=== PATIENT | female | born 1990 | race Caucasian/White ===

== ENCOUNTER 2017-06-20 11:51 | Emergency (ER) | payer OTHER ==
[~2017-06-20] VITALS: Ht 170.2 cm; Wt 71.2 kg
--- NOTE | 2017-06-20 12:02 | NUR ---
PATIENT TO ED DT LOWER ABDOMINAL CRAMP LIKE PAIN X 1 WEEK,. PATIENT IS 27 WEEEKS . DENIES BLOOD DISCHARGE, ADMITTED HAVING OCCASIONAL PAIN IN URINATION. PATIENT IS AFEBRILE. IN NO APPARENT DISTRESS. RESPIRATION EVEN AND UNALBORED. VSS
[2017-06-20 12:20] LABS: APPEARANCE,URINE Clear (CLEAR); BILIRUBIN,URINE Negative (NEGATIVE); BLOOD, URINE Negative Ery/uL (NEGATIVE); COLOR,URINE Yellow (YELLOW); KETONES,URINE 15 (NEGATIVE); LEUKOCYTE ESTERASE ,URINE Negative (NEGATIVE); NITRITE, URINE Negative (NEGATIVE); PROTEIN,URINE Negative (NEGATIVE); UGLUCOSE Negative (NEGATIVE); UROBILINOGEN,URINE 0.2 EU/dL (0.2)
[2017-06-20 12:29] LABS: BACTERIA,URINE Few /HPF (None Seen); MUCUS,URINE Few /LPF (None Seen); RBC,URINE 0-3 /HPF (0-2); SQUAMOUS EPITHELIAL CELL,UR Few /HPF (None Seen)
[2017-06-20 13:03] VITALS: BP 120/70
--- NOTE | 2017-06-20 13:04 | NUR ---
Patient discharged to home in stable condition. Written and verbal after care instructions given. Patient verbalizes understanding of instruction.
== END 2017-06-20 13:08 | disposition home or self-care (01) ==
LOC: ER 11:55
DX: O26.892 Other specified pregnancy related conditions, second trimester (principal); R10.30 Lower abdominal pain, unspecified; Z3A.26 26 weeks gestation of pregnancy
CPT/HCPCS: 76805; 81001; 99285; A4606; Z7610; 81000-TC

== ENCOUNTER 2019-03-17 18:17 | Emergency (ER) | payer OTHER ==
[~2019-03-17] VITALS: Ht 167.6 cm; Wt 54.9 kg
--- NOTE | 2019-03-17 18:30 | NUR ---
"Lower abdominal pain/diarrhea since yesterday" Patient a/ox4, breathing even and unlabored, no sob noted, attached to the monitor, changed into gown, patient gave urine sample and sent to lab. No distress noted, awaiting for md vigil.
[2019-03-17 18:38] LABS: APPEARANCE,URINE Clear (CLEAR); BILIRUBIN,URINE Negative (NEGATIVE); BLOOD, URINE Negative Ery/uL (NEGATIVE); COLOR,URINE Yellow (YELLOW); KETONES,URINE Negative (NEGATIVE); LEUKOCYTE ESTERASE ,URINE Negative (NEGATIVE); NITRITE, URINE Negative (NEGATIVE); PROTEIN,URINE Negative (NEGATIVE); UGLUCOSE Negative (NEGATIVE)
[2019-03-17 18:50] LABS: BASOPHILS % (AUTO) 0.4 % (0.0-2.0); EOSINOPHILS % (AUTO) 1.6 % (0.0-6.0); HEMATOCRIT 38 % (33-45); LYMPHOCYTES % (AUTO) 20.7 % (20.0-44.0); MEAN CORPUSCULAR HGB CONC 34 g/dl (31.0-36.0); MEAN CORPUSCULAR VOLUME 92 fL (82-100); MONOCYTES # (AUTO) 0.9 /CMM (0.1-1.30); MONOCYTES % (AUTO) 9.1 % (2.0-12.0); NEUTROPHILS # (AUTO) 6.5 /CMM (1.8-8.9); NEUTROPHILS % (AUTO) 68.2 % (43.0-81.0); PLATELET COUNT (AUTO) 169 /CMM (150-450); RED BLOOD CELL COUNT(AUTO) 4.17 MIL/uL (4.0-5.2); WHITE BLOOD COUNT (AUTO) 9.5 K/uL (4.3-11.0)
[2019-03-17 19:06] LABS: ALBUMIN 3.9 g/dL (3.4-5.0); BILIRUBIN,DIRECT 0.1 mg/dL (0.0-0.2); BILIRUBIN,TOTAL 0.3 mg/dL (0.2-1.0); CALCIUM, SERUM 8.6 mg/dL (8.5-10.1); CREATININE 0.6 mg/dL (0.6-1.3); POTASSIUM 3.7 mmol/L (3.5-5.1); TOTAL PROTEIN, SERUM 6.8 g/dL (6.4-8.2)
--- NOTE | 2019-03-17 19:18 | NUR ---
REPORT GIVEN TO JENNIFER BURTON.
--- NOTE | 2019-03-17 19:40 | NUR ---
radiology at bedside.
[2019-03-17 20:55] VITALS: BP 110/70
--- NOTE | 2019-03-17 20:56 | NUR ---
Patient discharged to home in stable condition. Written and verbal after care instructions given. Patient verbalizes understanding of instruction pt. ambulatory with a steady gait
== END 2019-03-17 20:58 | disposition home or self-care (01) ==
LOC: ER 18:25
DX: R10.31 Right lower quadrant pain (principal)
CPT/HCPCS: 36415; 76856-TC; 80048-TC; 80076-TC; 81000-TC; 83690-TC; 84703-TC; 85025-TC

== ENCOUNTER 2021-08-31 14:06 | Inpatient (IN) | payer OTHER ==
[~2021-08-31] VITALS: Ht 170.2 cm; Wt 64.0 kg
[2021-08-31] MEDS ORDERED: IV NS 0.9% 1,000 ML BAG IV ONE (15:00)
[2021-08-31 15:06] LABS: BASOPHILS % (AUTO) 0.3 % (0.0-2.0); EOSINOPHILS % (AUTO) 8.1 % (0.0-6.0); HEMATOCRIT 40 % (33-45); HEMOGLOBIN 13.2 g/dL (11.5-14.8); LYMPHOCYTES # (AUTO) 1.7 K/uL (0.8-4.8); LYMPHOCYTES % (AUTO) 10.8 % (20.0-44.0); MEAN CORPUSCULAR HGB CONC 33 g/dl (31.0-36.0); MEAN CORPUSCULAR VOLUME 92 fL (82-100); NEUTROPHILS # (AUTO) 12.1 K/uL (1.8-8.9); NEUTROPHILS % (AUTO) 74.8 % (43.0-81.0); PLATELET COUNT (AUTO) 182 K/uL (150-450); RED BLOOD CELL COUNT(AUTO) 4.34 MIL/uL (4.0-5.2); WHITE BLOOD COUNT (AUTO) 16.2 K/uL (4.3-11.0)
--- NOTE | 2021-08-31 15:14 | NUR ---
IV LINE IS ESTABLISHED, BLOOD SPECIMEN COLLECTED AND SENT TO THE LAB. THE LINE IS SALINE LOCKED.
--- NOTE | 2021-08-31 15:14 | NUR ---
US TECH AT THE BEDSIDE
[2021-08-31 15:18] LABS: CALCIUM, SERUM 8.7 mg/dL (8.5-10.1); CREATININE 0.8 mg/dL (0.6-1.3); POTASSIUM 3.3 mmol/L (3.5-5.1)
[2021-08-31 15:27] LABS: ALBUMIN 3.8 g/dL (3.4-5.0); BILIRUBIN,DIRECT 0.1 mg/dL (0.0-0.2); BILIRUBIN,TOTAL 0.4 mg/dL (0.2-1.0); TOTAL PROTEIN, SERUM 6.7 g/dL (6.4-8.2)
[2021-08-31 16:16] LABS: BILIRUBIN,URINE NEGATIVE (NEGATIVE); COLOR,URINE YELLOW (YELLOW); LEUKOCYTE ESTERASE ,URINE NEGATIVE (NEGATIVE); NITRITE, URINE NEGATIVE (NEGATIVE); PROTEIN,URINE NEGATIVE (NEGATIVE); UGLUCOSE NEGATIVE (NEGATIVE); UROBILINOGEN,URINE 0.2 EU/dL (0.2)
[2021-08-31] MEDS ORDERED: IOHEXOL-300 100 ML VIAL IV ONE (17:36)
[2021-08-31] MEDS ORDERED: CT SWABBABLE VALVE TRANS SET 1 EA INFUS.SET MC ONE (17:36)
[2021-08-31] MEDS ORDERED: IV NS 0.9% 250 ML IV ONE (17:37)
[2021-08-31] MEDS ORDERED: KETOROLAC TROMETHAMINE 15 MG/ML VIAL ONE ×2 (17:58→18:04)
[2021-08-31] MEDS ORDERED: KETOROLAC TROMETHAMINE INJ 30 MG/ML VIAL IV ONE (18:00)
[2021-08-31] MEDS ORDERED: PIPERACILLIN /TAZOBACTAM 3.375 G in IV D5W 50 ML IV ONE (18:30)
[2021-08-31] MEDS ORDERED: POTASSIUM CL. PREMIX PERIPHER. 50 ML IV SCH (18:30)
[2021-08-31] MEDS ORDERED: POTASSIUM CHLORIDE 20 MEQ TAB.PRT.SR PO ONE ×2 (18:55→19:00)
--- NOTE | 2021-08-31 18:55 | NUR ---
COVID ANTIGEN SWAB DONE AND SENT TO THE LAB
--- NOTE | 2021-08-31 19:28 | NUR ---
BROUGHT IN C/O WORSENING DIFFUSE ABDOMINAL PAIN X 3 WEEKS, +N/V TODAY. PT ALERT AND ORIENTED X4 BREATHING EVEN AND UNLABORED. ALL V/S STABLE AT THIS TIME.
[2021-08-31] MEDS ORDERED: Z GUARD REMEDY 4 OZ OINT TP PRN (20:00)
[2021-08-31] MEDS ORDERED: MAG HYDROX/AL HYDROX/SIMETH 30 ML UDC PO PRN (20:00)
[2021-08-31] MEDS ORDERED: ONDANSETRON HCL/PF 4 MG/2 ML VIAL IVP PRN (20:00)
[2021-08-31] MEDS ORDERED: MAGNESIUM HYDROXIDE 30 ML UDC PO PRN (20:00)
[2021-09-01] VITALS (7 sets, daily range): BP systolic 98–116; BP diastolic 57–78
[2021-09-01] MEDS ORDERED: PIPERACILLIN /TAZOBACTAM 3.375 G VIAL IV ONE ×2 (00:06→05:55)
[2021-09-01] MEDS: PIPERACILLIN /TAZOBACTAM 3.375 G in IV D5W 50 ML IV SCH ×4 (00:10→18:53)
--- NOTE | 2021-09-01 03:18 | NUR ---
PT SLEEPING COMFORTABLY BREATHING EVEN AND UNLABORED. CALL LIGHT WITHIN REACH AND ALL V/S STABLE.
[2021-09-01 04:36] LABS: BASOPHILS % (AUTO) 0.2 % (0.0-2.0); HEMATOCRIT 38 % (33-45); HEMOGLOBIN 12.7 g/dL (11.5-14.8); LYMPHOCYTES % (AUTO) 26.9 % (20.0-44.0); MEAN CORPUSCULAR HGB CONC 34 g/dl (31.0-36.0); MEAN CORPUSCULAR VOLUME 92 fL (82-100); MONOCYTES # (AUTO) 0.8 K/uL (0.1-1.30); MONOCYTES % (AUTO) 7.6 % (2.0-12.0); NEUTROPHILS # (AUTO) 5.1 K/uL (1.8-8.9); NEUTROPHILS % (AUTO) 46.3 % (43.0-81.0); PLATELET COUNT (AUTO) 179 K/uL (150-450); RED BLOOD CELL COUNT(AUTO) 4.13 MIL/uL (4.0-5.2); WHITE BLOOD COUNT (AUTO) 11.1 K/uL (4.3-11.0)
[2021-09-01 05:20] LABS: ALBUMIN 3.3 g/dL (3.4-5.0); BILIRUBIN,TOTAL 0.8 mg/dL (0.2-1.0); CALCIUM, SERUM 8.3 mg/dL (8.5-10.1); CREATININE 0.8 mg/dL (0.6-1.3); MAGNESIUM 2.3 mg/dL (1.8-2.4); PHOSPHORUS 4.2 mg/dL (2.5-4.9); POTASSIUM 3.6 mmol/L (3.5-5.1); TOTAL PROTEIN, SERUM 6.1 g/dL (6.4-8.2)
[2021-09-01] MEDS: IV NS 0.9% 1,000 ML IV PRN ×2 (06:02→16:01)
[2021-09-01] MEDS ORDERED: PANTOPRAZOLE 40 MG VIAL ONE (08:56)
[2021-09-01] MEDS: PANTOPRAZOLE 40 MG VIAL IV SCH (09:39)
[2021-09-01] MEDS ORDERED: MORPHINE SULFATE INJ 2 MG/ML DISP.SYRIN ONE (09:58)
[2021-09-01] MEDS: MORPHINE SULFATE INJ 2 MG/ML DISP.SYRIN IV PRN ×2 (10:08→18:53)
[2021-09-01] MEDS ORDERED: ANESTHESIA TRAY IN PYXIS 1 EA TRAY MC ONE (12:50)
[2021-09-01] MEDS ORDERED: LIDOCAINE 1% INJ 50 ML MDV IJ ONE (12:51)
[2021-09-01] MEDS ORDERED: BUPIVACAINE MPF W/EPI 0.25% 30 ML VIAL ONE (12:51)
[2021-09-01] MEDS ORDERED: HYDROMORPHONE INJ 2 MG/ML DISP.SYRIN ONE (13:13)
[2021-09-01] MEDS ORDERED: MIDAZOLAM HCL 2 MG/2ML VIAL ONE (13:13)
[2021-09-01] MEDS ORDERED: ROCURONIUM BROMIDE 50 MG/5 ML ONE (13:13)
--- NOTE | 2021-09-01 13:47 | NUR ---
THE PATIENT IS TAKEN TO OR IN STABLE CONDITION.
--- NOTE | 2021-09-01 15:20 | NUR ---
m/s potato seed cutter: admission admitted this 31 year old female pt from recovery room with dx: s/p laparoscopic appendectomy and washout, laparoscopic primary ventral hernia repair, laparoscopic guided bilateral transversus abdominis plane block. noted with 3 incision to abdomen covered with masticol with steri strips. no complaints pain at this time. oriented to room and surroundings. encourage early ambulation. vss, afebrile. no distress noted. will continue to monitor.
--- NOTE | 2021-09-01 18:00 | NUR ---
m/s wire border assembler: notes slight bleeding noted on mid abdomen, dressing reinforce. no c/o pain or any discomfort. needs attended. instructed to call for assistance. will continue to monitor.
--- NOTE | 2021-09-01 19:05 | NUR ---
m/s epic anesthesia analyst: notes bedside report given to luis (rn) for continuity of care.
--- NOTE | 2021-09-01 19:30 | NUR ---
MS RN OPENING NOTE PATIENT AWAKE IN BED, ALERT/ORIENTED X 4, PT ABLE TO MAKE NEEDS KNOWN. PATIENT REPORTING MILD ABDOMINAL PAIN AT THIS TIME. PT STABLE ON RA, NO S/S OF DISTRESS OR SOB NOTED, BREATHING EVEN AND UNLABORED. IV ACCESS ON RIGHT AC #20G RUNNING NS @ 75 ML/HR. 3 INCISIONS IN ABDOMEN NOTED, PER DAY SHIFT NURSE MIDDLE INCISION REINFORCED DUE TO SLIGHT BLEEDING, ALL DRESSINGS CURRENTLY CLEAN, DRY AND INTACT. SAFETY MEASURES IN PLACE: CALL LIGHT WITHIN REACH, SIDE RAILS UP X 2, BED LOCKED IN LOW POSITION, TABLE WITHIN REACH. WILL CONTINUE TO MONITOR PATIENT
[2021-09-01] MEDS: ACETAMINOPHEN 325 MG TABLET PO PRN (19:44)
[2021-09-01] MEDS ORDERED: MORPHINE SULFATE INJ 2 MG/ML DISP.SYRIN IV ONE (21:30)
--- NOTE | 2021-09-01 21:30 | NUR ---
MS RN OPENING NOTE PATIENT AWAKE IN BED, ALERT/ORIENTED X 4, PT ABLE TO MAKE NEEDS KNOWN. PATIENT REPORTING MILD ABDOMINAL PAIN AT THIS TIME. PT STABLE ON RA, NO S/S OF DISTRESS OR SOB NOTED, BREATHING EVEN AND UNLABORED. IV ACCESS ON RIGHT AC #20G RUNNING NS @ 75 ML/HR. 3 INCISIONS IN ABDOMEN NOTED, PER DAY SHIFT NURSE MIDDLE INCISION REINFORCED DUE TO SLIGHT BLEEDING, ALL DRESSINGS CURRENTLY CLEAN, DRY AND INTACT. SAFETY MEASURES IN PLACE: CALL LIGHT WITHIN REACH, SIDE RAILS UP X 2, BED LOCKED IN LOW POSITION, TABLE WITHIN REACH. WILL CONTINUE TO MONITOR PATIENT Addendum: 09/02/21 at 0445 by ARMAAN ALWS RN WRONG TIME, DISREGARD
--- NOTE | 2021-09-01 21:30 | NUR ---
MS RN NOTE PATIENT STILL REPORTING 8/10 ABDOMINAL PAIN EVEN THOUGH MORPHINE 2 MG IV Q4H PRN WAS GIVEN 2 @ [address] JANICE CHACKO REGARDING THIS AND RECEIVED NEW ORDER FOR ONE TIME DOSE OF MORPHINE 2 MG IV TO BE GIVEN NOW AND CHANGE FREQUENCY TO Q3H. ORDER READBACK AND CONFIRMED. ORDER CARRIED OUT
[2021-09-02] MEDS: PIPERACILLIN /TAZOBACTAM 3.375 G in IV D5W 50 ML IV SCH ×3 (00:53→12:41)
[2021-09-02] MEDS: MORPHINE SULFATE INJ 2 MG/ML DISP.SYRIN IV PRN ×3 (04:28→13:40)
--- NOTE | 2021-09-02 04:40 | NUR ---
MS RN NOTE PATIENT REPORTING 9/10 ABDOMINAL PAIN. MORPHINE 2 MG IV PRN GIVEN ORDERED. WILL CONTINUE TO MONITOR PATIENT
[2021-09-02] MEDS: IV NS 0.9% 1,000 ML IV PRN (06:01)
[2021-09-02] MEDS: ACETAMINOPHEN 325 MG TABLET PO PRN (06:50)
--- NOTE | 2021-09-02 07:33 | NUR ---
MS RN CLOSING NOTE PATIENT AWAKE IN BED, ALERT/ORIENTED X 4, PT ABLE TO MAKE NEEDS KNOWN. PATIENT REPORTING ABDOMINAL PAIN AT THIS TIME, TYLENOL 650 MG PO GIVEN BECAUSE MORPHINE ISN'T DUE YET, PT MAY NEED STRONGER PO PAIN MED FOR BREAKTHROUGH PAIN, ENDORSED TO DAY SHIFT NURSE. PT STABLE ON RA, NO S/S OF DISTRESS OR SOB NOTED, BREATHING EVEN AND UNLABORED. IV ACCESS ON RIGHT AC #20G RUNNING NS @ 75 ML/HR. 3 INCISIONS IN ABDOMEN NOTED, REINFORCED MIDDLE DRESSING DUE TO MILD BLEEDING. SAFETY MEASURES IN PLACE: CALL LIGHT WITHIN REACH, SIDE RAILS UP X 2, BED LOCKED IN LOW POSITION, TABLE WITHIN REACH. ENDORSED TO DAY SHIFT NURSE FOR CONTINUITY OF CARE
[2021-09-02 08:00] VITALS: BP 103/57
--- NOTE | 2021-09-02 08:00 | NUR ---
RN Opening Note Patient received in bed, AO x 4, no distress observed, able to responds all stimuli. Skin is warm to touch, keep clean/dry, intact IV site. Kept elevated HOB for ensure air/aspiration precaution and remains lower position of the bed. call light within reach, will continue to monitor.
[2021-09-02] MEDS: PANTOPRAZOLE 40 MG VIAL IV SCH (09:42)
[2021-09-02] MEDS ORDERED: AMOX-430 PO (14:32)
--- NOTE | 2021-09-02 16:12 | NUR ---
Patient discharge to home, given discharge instruction include order picker/assembler medications and follow up Dr. Gaston in 2 weeks. Noticed bleed from s/p on rios and dressing changed. No further active bleeding observed. Vital sings are stable.
[2021-09-03] MEDS ORDERED: PANTOPRAZOLE 40 MG TABLET.DR PO SCH (07:30)
== END 2021-09-02 16:56 | disposition home or self-care (01) | DRG 227 ==
LOC: ER 14:12 → TRANSITION 20:27 → MED 09-01 13:29
PROVIDERS: ADMIT Hospitalist; ATTEND Registered Nurse
PROC: 0DTJ4ZZ Resection of Appendix, Percutaneous Endoscopic Approach (ICD-10-PCS; principal; 2021-09-01)
PROC: 0WQF4ZZ Repair Abdominal Wall, Percutaneous Endoscopic Approach (ICD-10-PCS; 2021-09-01)
DX: K35.32 Acute appendicitis with perforation, localized peritonitis, and gangrene, without abscess (principal); E88.09 Other disorders of plasma-protein metabolism, not elsewhere classified; E87.6 Hypokalemia; Z20.822 Contact with and (suspected) exposure to COVID-19; N83.202 Unspecified ovarian cyst, left side; N83.201 Unspecified ovarian cyst, right side; D72.829 Elevated white blood cell count, unspecified; K43.9 Ventral hernia without obstruction or gangrene; K40.90 Unilateral inguinal hernia, without obstruction or gangrene, not specified as recurrent; K42.9 Umbilical hernia without obstruction or gangrene
CPT/HCPCS: 36415; 76700-TC; 80048-TC; 80053-TC; 80076-TC; 82962-TC; 83690-TC; 83735-TC; 84100-TC; 84702-TC; 84703-TC; 85025-TC; 87081-TC; 88304-TC; C9113; C9803; G0378; J0330; J1100; J1170; J1885; J2250; J2270; J2405; J2543; J2704; J3490; J7030; J7050; J7060; Q9967

== ENCOUNTER 2022-08-31 19:17 | Emergency (ER) | payer OTHER ==
[~2022-08-31] VITALS: Ht 170.2 cm; Wt 59.0 kg
[~2022-08-31 19:17] MED LIST: AMOX-430 PO
--- NOTE | 2022-08-31 20:00 | NUR ---
URINE SAMPLE SENT TO LAB
[2022-08-31 20:19] LABS: BILIRUBIN,URINE NEGATIVE (NEGATIVE); COLOR,URINE YELLOW (YELLOW); LEUKOCYTE ESTERASE ,URINE TRACE (NEGATIVE); NITRITE, URINE POSITIVE (NEGATIVE); PROTEIN,URINE 1+ mg/dl (NEGATIVE); UGLUCOSE NEGATIVE (NEGATIVE); UROBILINOGEN,URINE 0.2 EU/dL (0.2)
[2022-08-31 20:50] LABS: RBC,URINE TOO NUMEROUS TO COUN /HPF (0-2)
[2022-08-31 20:51] LABS: BACTERIA,URINE Moderate /HPF (None Seen); SQUAMOUS EPITHELIAL CELL,UR Few /HPF (None Seen)
--- NOTE | 2022-08-31 20:56 | NUR ---
LEFT FOR CT
[2022-08-31] MEDS ORDERED: KETOROLAC TROMETHAMINE INJ 30 MG/ML VIAL IV ONE (21:00)
[2022-08-31] MEDS ORDERED: KETOROLAC TROMETHAMINE 15 MG/ML VIAL ONE (21:07)
--- NOTE | 2022-08-31 21:20 | NUR ---
WET MOUT SWAB DONE AND SENT TO LAB
[2022-08-31 21:23] LABS: BASOPHILS % (AUTO) 0.2 % (0.0-2.0); EOSINOPHILS % (AUTO) 1.4 % (0.0-6.0); HEMATOCRIT 40 % (33-45); HEMOGLOBIN 12.9 g/dL (11.5-14.8); LYMPHOCYTES % (AUTO) 18.7 % (20.0-44.0); MEAN CORPUSCULAR HGB CONC 32 g/dl (31.0-36.0); MEAN CORPUSCULAR VOLUME 90 fL (82-100); MONOCYTES # (AUTO) 0.9 K/uL (0.1-1.30); MONOCYTES % (AUTO) 5.4 % (2.0-12.0); NEUTROPHILS # (AUTO) 12.1 K/uL (1.8-8.9); NEUTROPHILS % (AUTO) 74.3 % (43.0-81.0); PLATELET COUNT (AUTO) 281 K/uL (150-450); RED BLOOD CELL COUNT(AUTO) 4.42 MIL/uL (4.0-5.2); WHITE BLOOD COUNT (AUTO) 16.3 K/uL (4.3-11.0)
[2022-08-31] MEDS ORDERED: KETOROLAC TROMETHAMINE INJ 60 MG/2 ML VIAL IM ONE (21:30)
[2022-08-31 21:35] LABS: CREATININE 0.8 mg/dL (0.6-1.3); POTASSIUM 3.5 mmol/L (3.5-5.1)
[2022-08-31] MEDS ORDERED: IBUP-1953 PO ×3 (22:19→22:46)
[2022-08-31] MEDS ORDERED: PHEN-705 PO ×3 (22:19→22:46)
[2022-08-31] MEDS ORDERED: SULF1TAB48 PO ×3 (22:19→22:46)
--- NOTE | 2022-08-31 22:25 | NUR ---
Patient discharged to home in stable condition. Written and verbal after care instructions given. Patient verbalizes understanding of instruction.
[2022-08-31] MEDS ORDERED: KETOROLAC TROMETHAMINE INJ 30 MG/ML VIAL IM ONE (22:30)
[2022-08-31 22:54] VITALS: BP 106/68
== END 2022-08-31 22:54 | disposition home or self-care (01) ==
LOC: ER 19:27
DX: N39.0 Urinary tract infection, site not specified (principal); R10.2 Pelvic and perineal pain; Z79.899 Other long term (current) drug therapy
CPT/HCPCS: 99285; 74176; 96372; 85025; 80048; 87086; 84703; 81001; 36415; 87210; J1885

== ENCOUNTER 2024-05-06 18:14 | Emergency (ER) | payer OTHER ==
[~2024-05-06] VITALS: Ht 170.2 cm; Wt 59.0 kg
[~2024-05-06 18:14] MED LIST changes: +IBUP-1953 PO; +PHEN-705 PO; +SULF1TAB48 PO
[2024-05-06] MEDS: IV NS 0.9% 1,000 ML BAG IV ONE (20:00)
[2024-05-06] MEDS ORDERED: METOCLOPRAMIDE HCL 10 MG/2 ML VIAL ONE (20:04)
[2024-05-06] MEDS ORDERED: PANTOPRAZOLE 40 MG VIAL ONE (20:04)
[2024-05-06] MEDS ORDERED: KETOROLAC TROMETHAMINE 15 MG/ML VIAL ONE ×2 (20:04→22:23)
[2024-05-06] MEDS: PANTOPRAZOLE 40 MG VIAL IV ONE (20:05)
[2024-05-06] MEDS ORDERED: FAMOTIDINE/PF INJ 20 MG/2 ML VIAL IV ONE (20:05)
[2024-05-06] MEDS: KETOROLAC TROMETHAMINE 15 MG/ML VIAL IV ONE ×2 (20:06→22:28)
[2024-05-06] MEDS: FAMOTIDINE/PF INJ 20 MG/2 ML VIAL IV ONE (20:07)
[2024-05-06 20:15] LABS: BASOPHILS % (AUTO) 0.2 % (0.0-2.0); EOSINOPHILS # (AUTO) 0.4 K/uL (0.0-0.7); EOSINOPHILS % (AUTO) 3.8 % (0.0-6.0); HEMATOCRIT 38 % (33-45); LYMPHOCYTES # (AUTO) 2.4 K/uL (0.8-4.8); MEAN CORPUSCULAR HEMOGLOBIN 30 PG (26.0-33.0); MEAN CORPUSCULAR HGB CONC 34 g/dl (31.0-36.0); MEAN CORPUSCULAR VOLUME 90 fL (82-100); MONOCYTES # (AUTO) 0.8 K/uL (0.1-1.30); MONOCYTES % (AUTO) 7.5 % (2.0-12.0); NEUTROPHILS # (AUTO) 7.1 K/uL (1.8-8.9); NEUTROPHILS % (AUTO) 66.5 % (43.0-81.0); PLATELET COUNT (AUTO) 179 K/uL (150-450); RED BLOOD CELL COUNT(AUTO) 4.27 MIL/uL (4.0-5.2); RED CELL DISTRIBUTION WIDTH 12.6 % (11.5-15.0); WHITE BLOOD COUNT (AUTO) 10.7 K/uL (4.3-11.0)
[2024-05-06] MEDS: METOCLOPRAMIDE HCL 10 MG/2 ML VIAL IV ONE (20:15)
[2024-05-06 20:33] LABS: CALCIUM, SERUM 8.9 mg/dL (8.5-10.1); CREATININE 0.7 mg/dL (0.6-1.3); POTASSIUM 3.6 mmol/L (3.5-5.1)
[2024-05-06 20:45] LABS: ALBUMIN 4.2 g/dL (3.4-5.0); BILIRUBIN,DIRECT 0.1 mg/dL (0.0-0.2); BILIRUBIN,TOTAL 0.5 mg/dL (0.2-1.0)
[2024-05-06] MEDS: SUCRALFATE 1 G TABLET PO ONE (20:50)
[2024-05-06 20:52] LABS: APPEARANCE,URINE CLEAR (CLEAR); BILIRUBIN,URINE NEGATIVE (NEGATIVE); BLOOD, URINE NEGATIVE Ery/uL (NEGATIVE); COLOR,URINE YELLOW (YELLOW); KETONES,URINE NEGATIVE (NEGATIVE); LEUKOCYTE ESTERASE ,URINE NEGATIVE (NEGATIVE); NITRITE, URINE NEGATIVE (NEGATIVE); PROTEIN,URINE NEGATIVE (NEGATIVE); UGLUCOSE NEGATIVE (NEGATIVE); UROBILINOGEN,URINE 0.2 EU/dL (0.2)
[2024-05-06] MEDS ORDERED: SUCRALFATE 1 G/10 ML UDC ONE (20:54)
[2024-05-06] MEDS: SUCRALFATE 1 G/10 ML UDC PO ONE (20:55)
[2024-05-06] MEDS ORDERED: FAMO20TA80 PO (21:49)
[2024-05-06] MEDS ORDERED: SUCR1TAB31 PO (21:49)
[2024-05-06] MEDS ORDERED: PANT40TA49 PO (21:49)
[2024-05-06 22:40] VITALS: BP 110/75; TEMP 98.1; O2SAT 0
== END 2024-05-06 22:40 | disposition home or self-care (01) ==
LOC: ER 18:18
DX: K29.70 Gastritis, unspecified, without bleeding (principal); R11.2 Nausea with vomiting, unspecified; Z90.49 Acquired absence of other specified parts of digestive tract
CPT/HCPCS: 99284; 96374; 96375; 96361; 96376; 85025; 80048; 83690; 80076; 81003; 36415; J3490; J2765; J7030; J2470; J1885 ×2